=== PATIENT | male | born 1995 | race Caucasian/White ===

== ENCOUNTER 2023-09-14 20:36 | Emergency (ER) | payer BC, SELFPAY ==
[2023-09-14 21:32] VITALS: BP 0/0; PULSE 0; RESP 0; TEMP -17.7; TEMP 0; O2SAT 0
== END 2023-09-14 21:34 | disposition left against medical advice (07) ==
LOC: ER 21:38
PROVIDERS: Emergency Provider Emergency Medicine; PCP Internal Medicine Adolescent Medicine
DX: Z53.21 Procedure and treatment not carried out due to patient leaving prior to being seen by health care provider (principal)
CPT/HCPCS: 99211

== ENCOUNTER 2023-09-16 13:40 | Outpatient (CLI) | payer BC, SELFPAY ==
[2023-09-16 14:04] LABS: Basophils # 0.1 K/mm3 (0-0.2); Basophils % 0.9 % (0.1-2.0); Eosinophils # 0.2 K/mm3 (0.0-0.4); Eosinophils % 2.3 % (0.1-12.0); Hematocrit 44.8 % (42.0-52.0); Hemoglobin 15.2 g/dL (14.1-18.0); Lymphocytes # 3.4 K/mm3 (0.7-4.5); Mean Corpuscular HGB Conc 33.9 g/dL (31.8-35.4); Mean Corpuscular Hemoglobin 28.8 pg (27.0-31.2); Mean Corpuscular Volume 84.9 fl (80-94); Mean Platelet Volume 7.3 fl (7.4-10.4); Monocytes # 0.6 K/mm3 (0.1-1.0); Neutrophils # 5.9 K/mm3 (1.8-7.8); Neutrophils % 57.8 % (37.0-80.0); Platelet Count 322 K/mm3 (142-424); Red Blood Count 5.28 M/mm3 (4.60-6.20); Red Cell Distribution Width 13.5 % (11.5-17.5); White Blood Count 10.2 K/mm3 (4.8-10.8)
[2023-09-16 14:27] LABS: Alanine Aminotransferase 29 U/L (12-78); Albumin Level 4.1 g/dl (3.5-5.0); Albumin/Globulin Ratio 1.3 (1.1-1.8); Alkaline Phosphatase 91 U/L (38-126); Anion Gap 9.9 mEq/L (5-15); Aspartate Amino Transferase 24 U/L (17-59); Bilirubin,Total 0.8 mg/dl (0.2-1.3); Blood Urea Nitrogen 17 mg/dl (9-20); Calcium 9.3 mg/dl (8.4-10.2); Carbon Dioxide 26 mmol/L (22.0-30.0); Chloride 110 mmol/L (98-107); Cholesterol 155 mg/dl (140-200); Estimated Glomerular Filt Rate 101 ml/min (>60); GFR (African American) 122 ML/MIN (>60); Globulin 3.1 g/dL (1.3-3.2); Glucose 90 mg/dl (74-100); HDL Cholesterol 31 mg/dl (40-60); Potassium 3.9 mmoL/L (3.5-5.1); Sodium 142 mmol/L (136-145); Total Protein,Serum 7.2 g/dl (6.3-8.2); Triglycerides 73 mg/dl (30-150); VLDL Cholesterol 15 mg/dL (0-40)
[2023-09-16 14:39] LABS: Direct LDL Cholesterol 108.24 mg/dL (100-129)
[2023-09-16 15:00] LABS: Thyroid Stimulating Hormone 2.22 uIU/mL (0.465-4.68)
[2023-09-16 15:19] LABS: Hemoglobin A1C 4.9 % (4.0-6.0); Vitamin B12 610 pg/mL (239-931)
[2023-09-18 11:09] LABS: Testosterone,Total 236 ng/dL (264-916)
== END 2023-09-16 23:59 | disposition home or self-care (01) ==
LOC: LAB 13:42
PROVIDERS: PCP Internal Medicine Adolescent Medicine; Visit Provider Nurse Practitioner Family
DX: R40.0 Somnolence (principal)
CPT/HCPCS: 36415; 80050; 80053; 80061; 82607; 83036; 84403; 84443; 85025

== ENCOUNTER → 2023-10-10 08:43 | Outpatient (CLI) | payer BC, SELFPAY | LOC: SL 08:44 | PROVIDERS: PCP Internal Medicine Adolescent Medicine; Visit Provider Nurse Practitioner Family | DX: G47.33 Obstructive sleep apnea (adult) (pediatric) (principal); G47.36 Sleep related hypoventilation in conditions classified elsewhere | CPT/HCPCS: G0399 ==

== ENCOUNTER 2024-03-02 03:40 | Outpatient (CLI) | payer BC, SELFPAY ==
[2024-03-03 11:16] LABS: Testosterone,Total 333 ng/dL (264-916)
[2024-03-07 14:16] LABS: Testosterone,Free 6.1 pg/mL (9.3-26.5)
== END 2024-03-02 23:59 | disposition home or self-care (01) ==
LOC: LAB 03:42
PROVIDERS: PCP Internal Medicine Adolescent Medicine; Visit Provider Urology
DX: E29.1 Testicular hypofunction (principal)
CPT/HCPCS: 84402; 84403